=== PATIENT | male | born 1955 | race Hispanic/Latino ===

== ENCOUNTER 2019-11-27 22:42 | Observation (INO) | payer OTHER ==
--- NOTE | 2019-11-27 23:45 | RAD ---
XR Chest 1 View Portable History: Chest pain Comparison: Radiograph May 2018 Findings: Lungs are clear. No pneumothorax or effusion. Cardiac silhouette and mediastinal contours a re within normal limits. No acute osseous abnormality. Impression: No acute intrathoracic abnormality.
[2019-11-27 23:49] LABS: #Basophils 0.1 thou/uL (0.0-0.2); #Eosinphils 0.1 thou/uL (0.0-0.7); #Lymphocytes 2.8 thou/uL (1.20-3.40); #Monocytes 0.7 thou/uL (0.11-0.59); #Neutrophils 2.9 thou/uL (1.40-6.50); %Basophils 1.1 % (0.0-1.0); %Eosinophils 1.6 % (0.0-10.0); %Lymphocytes 42.9 % (21.0-51.0); %Monocytes 10.1 % (0.0-10.0); %Neutrophils 44.4 % (42.0-75.0); Hemoglobin 16.6 g/dL (14.0-18.0); Mean Corpuscular HGB CONC 35.7 g/dL (32.0-36.0); Mean Corpuscular Hemoglobin 32.4 pg (27.0-31.0); Mean Corpuscular Volume 90.8 fL (78.0-98.0); Platelet Count 137 thou/uL (130-400); RBC Distribution Width 12.1 % (11.5-14.5); Red Blood Cell (RBC) Count 5.12 mill/uL (4.70-6.10); White Blood Cell (WBC) Count 6.4 thou/uL (4.8-10.8)
[2019-11-28 00:12] LABS: ALT (SGPT) 21 U/L (8-55); AST (SGOT) 19 U/L (5-34); Albumin 4.1 g/dL (3.4-4.8); Alkaline Phosphatase 77 U/L (40-110); Anion Gap 13 mmol/L (10-20); BUN (Urea Nitrogen) 17 mg/dL (8.4-25.7); Bilirubin, Total 0.4 mg/dL (0.2-1.2); Calc. Creatinine Clearance 0 mL/min (70-130); Carbon Dioxide 24 mmol/L (23-31); Chloride 107 mmol/L (98-107); Estimated GFR-MDRD 76; Globulin 2.8 g/dL (2.4-3.5); Glucose 105 mg/dL (80-115); Protein, Total 6.9 g/dL (5.8-8.1); Sodium 140 mmol/L (136-145)
[2019-11-28] MEDS ORDERED: Enoxaparin Sodium 80 MG/0.8 ML SYRINGE ONE (01:16)
[2019-11-28] MEDS ORDERED: Enoxaparin Sodium 100 MG/ML SYRINGE ONE (01:18)
[2019-11-28] MEDS ORDERED: Aspirin 325 MG TAB PO SCH (02:30)
--- NOTE | 2019-11-28 03:07 | HP ---
PRIMARY CARE PHYSICIAN: None, [facility]. CHIEF COMPLAINT: Chest pain. HISTORY OF PRESENT ILLNESS: The patient is a 64-year-old male with past medical history significant for cardiac ablation after being in atrial fibrillation. He presented to the ER today after 2 hours of chest pain. This chest pain initially felt like "electrical spikes" in his chest and then turned to more of a pressure. He describes this feeling as someone was pushing their hand on his chest. He was out watering his plants when it first occurred. When he went to lay down and rest is when it changed to more of a pressure. He states that it has been coming on and off for the past 3 to 4 days whenever exerting himself. He is unable to purposefully reproduce the pain on his own. He was particularly worried because both his brother and his father had heart attacks at ages younger than he currently is now. The patient was diaphoretic during this and he did state he had some bilateral shoulder pain. The shoulder pain has been ongoing for a few weeks now. The patient denies any shortness of breath, abdominal pain, change in bowel or bladder habits, contact with sick person, fevers. Today in the ER, they completed an EKG, chest x-ray, and lab work. They administered full-dose Lovenox. The patient took 2 full-strength aspirin prior to arrival. PAST MEDICAL HISTORY: Atrial fibrillation, high cholesterol. PAST SURGICAL HISTORY: Ablation. ALLERGIES: NO KNOWN DRUG ALLERGIES. MEDICATIONS: None. SOCIAL HISTORY: The patient lives at home with his . He denies any alcohol, drug, or smoking history. FAMILY HISTORY: Significant history of cardiac disease in his family. REVIEW OF SYSTEMS: All other review of systems are negative unless noted in the HPI. PHYSICAL EXAMINATION: VITAL SIGNS: Blood pressure 124/78, pulse 52, respiratory rate 16, temperature 97.8, O2 saturation 98% on room air. GENERAL: Nontoxic appearing. HEENT: Head; atraumatic, normocephalic. Eyes, PERRLA. Extraocular muscles intact. NECK: Muscle tightness noted and discomfort with palpation in neck and shoulders. RESPIRATORY: Clear to auscultation bilaterally. No rhonchi, no wheezes, no rales. CARDIOVASCULAR: Heart, regular rate and rhythm. No murmur. No rubs. No gallops. EXTREMITIES: No edema. No cyanosis. NEUROLOGIC: Awake and alert. LABORATORY AND IMAGING DATA: EKG, sinus adelso at 56 beats per minute. No ectopic beats. Chest x-ray showed no acute intrathoracic abnormality. Initial troponin negative. Sodium 140, potassium 4.0, chloride 107, BUN 17, creatinine 1, GFR 76, glucose 105, alkaline phosphatase 77, AST 19, ALT 21. White blood cell 6.4, hemoglobin 16.6, hematocrit 46.5. IMPRESSION AND PLAN: The patient is to be admitted overnight for unstable angina. He is to have a Cardiology consult in the morning. We will defer ordering of a stress test for Cardiology. We will continue full-dose Lovenox at this time. He has already received this morning dose in the ER. I will also obtain a fasting lipid in the morning as patient has a history of hyperlipidemia. Continue to trend troponins throughout the morning and continue his aspirin. The patient has a history of atrial fibrillation, but has been in sinus rhythm as far as he knows since his ablation. He is currently in a sinus rhythm now. We will continue to monitor this on telemetry. GI and DVT prophylaxis in place at this time. The patient wishes to be a full code. His , Lorena, is to be his surrogate decision maker. The patient has been discussed with Dr. Garcia. Job ID: [id number] [facility]
[2019-11-28 03:32] VITALS: BMI 26.2
[2019-11-28 04:21] LABS: Cardiac Risk 4.6 (Less than 4.5)
[2019-11-28 04:26] LABS: Troponin I 0.012 ng/mL (< 0.028)
[2019-11-28 06:38] LABS: Troponin I 0.012 ng/mL (< 0.028)
[2019-11-28] MEDS ORDERED: Enoxaparin Sodium 80 MG/0.8 ML SYRINGE SC SCH ×2 (09:00→21:00)
[2019-11-28] MEDS ORDERED: Aspirin 325 mg Enteric Coated Tablet PO SCH (09:00)
[2019-11-28] MEDS ORDERED: ADENOSINE 60 MG/20 ML VIAL ONE (09:09)
[2019-11-28 12:12] LABS: SARS-CoV-2 MS2 Positive; SARS-CoV-2 N Gene Negative; SARS-CoV-2 S Gene Negative; SARS-CoV-2 by NAA Not Detected (NotDetected); SARS-CoV-2 orf1ab Negative
--- NOTE | 2019-11-28 14:46 | CON ---
DATE OF CONSULTATION: 11/28/2019 INDICATIONS FOR CONSULTATION: A 64-year-old patient with chest pain. HISTORY OF PRESENT ILLNESS: This very pleasant 64-year-old gentleman is a patient of Dr. Josh Pryor. He says he has never had a cardiac catheterization. He has been seen in the emergency room at least 2 times over [facility] and here now, complaining of chest discomfort. He was observed overnight, usually left and was sent back home. He said he had a stress test several years ago, that was unremarkable. His cardiac enzymes thus far negative x3 for myocardial infarction. EKG is unremarkable. First he told me yesterday morning he got up he felt lightheaded after he got up from his chair, lasted for a short period of time, then he went about doing whatever he wanted to do for the rest of the day, he was watering plants. He came back in and then he noticed that he was having some chest discomfort, which he describes as being sharp stabbing pains in the left upper area. He then admitted this ever since his ablation for atrial fibrillation, which occurred in 2012. He has been having some left anterior somewhat discomfort as he describes it, but has not had any sharp stabbing pains like this. The pain did not have any radiation. He did not have any other symptoms associated with it. He presented to the emergency room where he has thus far ruled out for myocardial infarction. He is somewhat concerned since he had some family history of heart disease at a young age. According to the records, the patient did state that he was somewhat diaphoretic; however, he did not admit any diaphoresis when I spoke to him today. Otherwise, he is fine. He has had no further chest discomfort. He is just concerned that he may have underlying heart disease. He also admits that he has been having some discomfort for the last 2 to 3 days and sometimes has pain in the neck and the shoulder. He has had some shoulder surgery in the past in the left shoulder in 2013. Otherwise, at this time, he remains stable. His LDL is elevated at 140. He is supposed to be taking Crestor, but he does not take it on a routine basis and has not been taking the medication recently. PAST MEDICAL HISTORY: Significant for: 1. Atrial fibrillation and ablation. 2. He has had left shoulder surgery in 2013. 3. He has hypercholesterolemia. 4. He has history of gastroesophageal reflux disease. ALLERGIES: NONE. MEDICATIONS: He is supposed to be taking 81 mg of aspirin and Crestor 10 mg, but he takes on a p.r.n. basis. SOCIAL HISTORY: He lives here in [place] with his . He has now resumed some work. 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 He has no alcohol or tobacco abuse. FAMILY HISTORY: Positive for coronary artery disease in a brother and a father. REVIEW OF SYSTEMS: Unremarkable except what was noted in the history of present illness. PHYSICAL EXAMINATION: GENERAL: A well-developed, well-nourished gentleman, in no acute distress. VITAL SIGNS: Blood pressure is 95/64, heart rate 60 and regular, respiratory rate is 16, and he is afebrile. HEENT: Unremarkable. NECK: Carotid pulses are present. There are no bruits. There is no JVD. CHEST: Clear to auscultation without rales, rhonchi, or wheezing. CARDIOVASCULAR: Regular rate and rhythm. S1 and S2. There is no S3 or S4. There were no significant murmurs, heaves, thrills, bruits, or rubs. ABDOMEN: Soft and nontender. Positive bowel sounds are present. There is no organomegaly or masses noted. Femoral pulses are present. EXTREMITIES: No clubbing, cyanosis, or edema. Pedal pulses are present. NEUROLOGIC: The patient is fully intact. There are no gross focal motor deficits. He is able to walk and ambulate without problems. LABORATORY DATA: Negative cardiac enzymes x3. LDL is 140 and triglyceride 182. WBC is 6.4, hemoglobin 16.6, and platelet count 137,000. Sodium was 140, potassium 4.0, BUN 17, creatinine 1.0, and blood sugar 105. EKG shows a sinus rhythm with no acute changes. IMPRESSION: 1. A 64-year-old gentleman with history of chest discomfort. He has had workup in the past. His last stress test was several years ago apparently with Dr. Abreu. He denies any previous cardiac catheterization. At this time, since he has electrical pain spikes in his chest, certainly it does not seem typical for coronary artery disease. He does have risk factors of coronary artery disease with a family history and elevated cholesterol. We will schedule him for a repeat stress test. If there is any indication that there is an abnormality, he will need to undergo cardiac catheterization. Otherwise, if stress test is normal, he can be discharged and can follow up with his primary care physician. 2. History of hypercholesterolemia. I have encouraged him to continue taking his medications, resume his Crestor and stick with the medication and then repeat his cholesterol level in about 3 months, and if it still remains elevated, we should increase the dose of the cholesterol. 3. History of atrial fibrillation with ablation. There is no indication he has had any further recurrence of the atrial fibrillation. Job ID: [id number]
--- NOTE | 2019-11-28 15:54 | NM ---
Radionucleotide stress and rest myocardial perfusion scan with CT attenuation correction and SPECT im aging Left ventricular wall motion evaluation and ejection fraction HISTORY: Chest pain. FINDINGS: Adenosine protocol. Homogeneous uptake of radiotracer throughout the left ventricular myoca rdium. No focal perfusion defect or reversibility. QGS analysis of gated SPECT images shows no focal wall motion abnormalities. Ejection fraction calculated at 65%. IMPRESSION : No evidence of ischemia. Normal LVEF.
[2019-11-28 17:17] VITALS: BP 118/74; TEMP 98
[2019-11-28] MEDS ORDERED: Rosuvastatin 10 MG TAB PO SCH (21:00)
--- NOTE | 2019-11-29 03:07 | DIS ---
DATE OF ADMISSION: 11/28/2019 DATE OF DISCHARGE: 11/28/2019 DISCHARGE DIAGNOSES: 1. Chest pain possibly secondary to musculoskeletal pain versus gastroesophageal reflux disease. 2. Hyperlipidemia. 3. History of atrial fibrillation, status post ablation. CONSULTATIONS: Cardiology with Skylar Gutiérrez MD PROCEDURES: Nuclear stress test. BRIEF HISTORY OF PRESENT ILLNESS: This is a 64-year-old male with past medical history of atrial fibrillation and hyperlipidemia, presented to the emergency room with chest pain. The patient states that his pain was in the left side of his chest. He stated that it was stabbing in sensation and typically would occur with exertion and was relieved with rest. He stated that he took Pepto-Bismol two days prior without any relief so he came to the ER. He did state that the attacks would occur on and off for a few seconds at a time. EKG and troponins were unremarkable. Chest x-ray was normal. He was admitted for further workup. HOSPITAL COURSE: Chest pain: The patient had three sets of troponins, which were normal. He underwent a nuclear stress test, which was normal. Cardiology was consulted and recommended a stress test. The patient ambulated and had no chest pain or shortness of breath on exertion. He will be discharged and was advised to follow up with his PCP in a week. DISCHARGE PHYSICAL EXAMINATION: VITAL SIGNS: Temperature 97.5, heart rate 50, respiratory rate 20, O2 saturation 100% on room air, and blood pressure 126/72. GENERAL: The patient is alert, awake, and oriented x3. CVS: Regular rate and rhythm. No murmurs, rubs, or gallops. LUNGS: Clear to auscultation bilaterally. ABDOMEN: Positive bowel sounds. Soft, nontender, and nondistended. EXTREMITIES: No edema. PERTINENT LABORATORY DATA: CBC 11/26: Normal. CMP 11/26: Normal. Troponin I: Less than 0.010, 0.012, and 0.012. Lipid panel: Triglycerides 182, cholesterol 225, LDL 140, and HDL 49. COVID PCR on 11/27: Negative. PERTINENT IMAGING: Chest x-ray 11/26: No acute disease. Nuclear stress test: No evidence of ischemia. DISCHARGE CONDITION: Stable. ACTIVITY: As tolerated. DIET: Heart healthy diet. DISCHARGE INSTRUCTIONS: The patient to follow up with his PCP in a week. Come back to the hospital if he has severe chest pain, shortness of breath, dizziness, or lightheadedness. Job ID: [id number] [facility]
[2019-11-29] MEDS ORDERED: Aspirin 81 mg Enteric Coated Tablet PO SCH (09:00)
== END 2019-11-28 18:18 | disposition home or self-care (01) ==
LOC: ERS 22:42 → 2SW 11-28 03:07
PROVIDERS: ADMIT Internal Medicine; ATTEND Internal Medicine
DX: I20.0 Unstable angina (principal); E78.00 Pure hypercholesterolemia, unspecified; E78.5 Hyperlipidemia, unspecified; I48.91 Unspecified atrial fibrillation; Z79.899 Other long term (current) drug therapy; Z20.828 Contact with and (suspected) exposure to other viral communicable diseases
CPT/HCPCS: 36415; 71045; 78452; 80053; 80061; 84484; 85025; 87635; 93005; 93017; 94760; 96372; A9500; G0378; J0153; J1650; U0003

== ENCOUNTER 2020-08-17 19:02 | Emergency (ER) | payer OTHER ==
[2020-08-17] MEDS ORDERED: diphenhydrAMINE 25 MG CAP ONE (19:52)
== END 2020-08-17 21:05 | disposition home or self-care (01) ==
LOC: ERS 19:02
DX: R09.89 Other specified symptoms and signs involving the circulatory and respiratory systems (principal); T48.3X5A Adverse effect of antitussives, initial encounter; E78.00 Pure hypercholesterolemia, unspecified
CPT/HCPCS: 99283; Q0163

== ENCOUNTER 2023-03-02 02:52 | Emergency (ER) | payer OTHER, SELFPAY ==
[2023-03-02 03:52] LABS: #Eosinphils 0.2 thou/uL (0.0-0.7); #Monocytes 0.8 thou/uL (0.11-0.59); #Neutrophils 2.8 thou/uL (1.40-6.50); %Basophils 0.6 % (0.0-1.0); %Eosinophils 2.6 % (0.0-10.0); %Lymphocytes 43.9 % (21.0-51.0); %Monocytes 12.2 % (0.0-10.0); %Neutrophils 40.6 % (42.0-75.0); Hematocrit 44.7 % (42.0-52.0); Hemoglobin 15.6 g/dL (14.0-18.0); Mean Corpuscular HGB CONC 34.9 g/dL (32.0-36.0); Mean Corpuscular Hemoglobin 31.1 pg (27.0-31.0); Mean Corpuscular Volume 89.2 fl (78.0-98.0); Mean Platelet Volume 10.2 fL (7.4-10.4); Platelet Count 140 10x3/uL (130-400); RBC Distribution Width 13.1 % (11.5-14.5); Red Blood Cell (RBC) Count 5.01 mill/uL (4.70-6.10); White Blood Cell (WBC) Count 6.8 10x3/uL (4.8-10.8)
[2023-03-02 04:21] LABS: ALT (SGPT) 33 U/L (8-55); AST (SGOT) 28 U/L (5-34); Albumin 4.1 g/dL (3.4-4.8); Alkaline Phosphatase 69 U/L (40-110); Anion Gap 11 mmol/L (10-20); BUN (Urea Nitrogen) 24 mg/dL (8.4-25.7); Bilirubin, Total 0.7 mg/dL (0.2-1.2); Calc. Creatinine Clearance 0 mL/min (70-130); Calcium 9.4 mg/dL (7.8-10.44); Carbon Dioxide 23 mmol/L (23-31); Chloride 106 mmol/L (98-107); Estimated GFR 75; Globulin 2.8 g/dL (2.4-3.5); Glucose 100 mg/dL (80-115); Potassium 3.8 mmol/L (3.5-5.1); Protein, Total 6.9 g/dL (5.8-8.1); Sodium 136 mmol/L (136-145)
[2023-03-02 04:31] LABS: SARS-CoV-2 NAA Rapid Test Not Detected (NotDetected)
== END 2023-03-02 06:54 | disposition home or self-care (01) ==
LOC: ERS 02:52
DX: R53.83 Other fatigue (principal); E78.00 Pure hypercholesterolemia, unspecified; Z79.899 Other long term (current) drug therapy
CPT/HCPCS: 36415; 70450; 80053; 84484; 85025; 93005